=== PATIENT | male | born 1975 | race Caucasian/White ===

== ENCOUNTER 2023-07-18 19:42 | Inpatient (IN) | payer OTHER ==
[~2023-07-18] VITALS: Ht 180.3 cm; Wt 78.5 kg
[~2023-07-18 19:42] MED LIST: CHLO25B PO; MELATONIN5 M1 PO; VENL150ER PO
[2023-07-18] MEDS ORDERED: PRAZOSIN HCL1 M2 PO (19:54)
[2023-07-18] MEDS ORDERED: PAXIL2010 PO (19:54)
[2023-07-18 23:05] VITALS: BP 147/88
[2023-07-19] VITALS (16 sets, daily range): BP systolic 120–163; BP diastolic 72–99
--- NOTE | 2023-07-19 11:04 | NUR ---
PT TO OR AT THIS TIME
--- NOTE | 2023-07-19 11:28 | NUR ---
PT HAS 20G IV IN R AC THAT SHOWS NO SIGNS OF INFILTRATION. NO REDNESS, SWELLING, DRAINAGE AND DRESSING IS CDI.
--- NOTE | 2023-07-19 14:00 | NUR ---
POST OP: REPORT RECEIVED FROM LATOSHA YANEZ RN. UPON ASSESSMENT PT IS DROWSY, AWAKENS TO VOICE. SURGICAL SITES WNL, VSS. PT REPORTS PAIN TOLERABLE AT THIS TIME AND IS COMFORTABLE. PT AT BEDSIDE.
--- NOTE | 2023-07-19 18:00 | NUR ---
SUMMARY: NO ACUTE CHANGE SINCE POST OP. PT HAS BEEN SLEEPY, BUT WOKE UP TO AMBULATE, VOID AND EAT A LITTLE. PT REPORTS PAIN MANAGED WITH 1 OXY. DENIES N/V AND REPORTS FEELING BETTER. PT WEANED OFF 02. PLAN IS FOR DC TOMORROW.
--- NOTE | 2023-07-20 06:22 | NUR ---
SHIFT SUMMARY PT IS POD#1 FOR A LAPAROSCOPIC APPENDECTOMY. PT'S VITAL SIGNS HAVE BEEN STABLE THROUGHOUT THE SHIFT AND HIS PAIN HAS BEEN WELL CONTROLLED VIA EMAR. PT'S 3 LAP SITES ARE C/D/I AND HE WAS ABLE TO STAND AND VOID AGAIN EARLY THIS AM (700ML OUTPUT). NO OTHER ACUTE EVENTS OCCURRING OVERNIGHT. BED IS IN LOWEST POSITION, CALL LIGHT IS WITHIN REACH.
[2023-07-20 07:39] VITALS: BP 132/86
[2023-07-20 14:38] VITALS: BP 151/94
--- NOTE | 2023-07-20 19:02 | NUR ---
SHIFT SUMMARY POD1 LAP APPY, A/OX4, VSS, TOLERATING PO, AMBULATING INDEPENDENTLY, VOIDING, PAIN MANAGED PER EMAR, ENCOURAGING HIM TO AMBULATE. POSITIVE BLOOD CULTURES DRAWN FROM [facility] PRIOR TO TRANSFER TO HERE. NO ACUTE EVENTS THIS SHIFT, CALL LIGHT IN REACH.
[2023-07-20 19:04] VITALS: BP 153/91
[2023-07-21 03:54] VITALS: BP 146/91
[2023-07-21 04:59] LABS: Hematocrit 34.8 % (37.0-53.0); Hemoglobin 11.9 g/dL (13.5-17.5); Mean Corpuscular HGB 31.2 pg (26.0-34.0); Mean Corpuscular HGB Conc 34.2 g/dL (31.5-36.5); Mean Corpuscular Volume 91 fL (80-100); Mean Platelet Volume 9.9 fL (9.1-12.4); Platelet Count 168 K/mm3 (150-400); RDW Coefficient Variation 11.9 % (11.7-14.2); RDW Standard Deviation 39.8 fL (35.1-46.3); Red Blood Cell Count 3.82 M/mm3 (4.30-5.90); White Blood Cell Count 7.86 K/mm3 (4.00-11.30)
--- NOTE | 2023-07-21 05:29 | NUR ---
SUMMARY NO ACUTE CHANGES THROUGH THE NIGHT, VSS, 99.9 TEMP REPORTED THIS AM, PT EDUCATED ON COUGH & D.BREATHING, AMBULATION ENC, LAP SITES C/D/I, PAIN MANAGED W/PO MEDS, VOIDING WNL, IS AT THE BEDSIDE, CALL LIGHT IN REACH,
[2023-07-21 08:38] VITALS: BP 154/89
[2023-07-21 10:23] LABS: BAND PERCENT MAN 1 % (0-8); BASOPHILS PERCENT MAN 0 % (0-2); EOSINOPHILS PERCENT MAN 0 % (0-6); LYMPHOCYTES PERCENT MAN 9 % (21-46); MONOCYTES ABSOLUTE MAN 1.02 K/mm3 (0.16-1.47); MONOCYTES PERCENT MAN 13 % (4-13); NEUTROPHILS ABSOLUTE MAN 6.13 K/mm3 (1.96-9.15); SEG NEUTROPHILS PERCENT MAN 77 % (41-73); TOTAL CELLS COUNTED 100
--- NOTE | 2023-07-21 12:52 | NUR ---
DISCHARGE SUMMARY POD2 LAP APPY, A/OX4, VSS, TOLERATING PO, PAIN MANAGED PER EMAR, 3 LAP SITES C/D/I WITH STERI STRIPS IN PLACE, INDEPENDENT IN HIS ROOM ALL THIS SHIFT. DISCUSSED DISCHARGE INSTRUCTIONS WITH HIM AND HIS INCLUDING HOME CARE, MEDICATIONS (NEW SCRIPTS PROVIDED), AND FOLLOW UP APPOINTMENTS. NO QUESTIONS AT THIS TIME, IV ACCESS REMOVED. PT DECLINED WC ESCORT AND LEFT AMBULATORY TO PRIVATE AUTO TO GO HOME.
== END 2023-07-21 12:10 | disposition home or self-care (01) | DRG 398 ==
LOC: ER 19:42 → SURS 19:43
PROVIDERS: ADMIT Surgery
PROC: 0DTJ4ZZ Resection of Appendix, Percutaneous Endoscopic Approach (ICD-10-PCS; principal; 2023-07-19 11:30)
DX: K35.80 Unspecified acute appendicitis (principal); R78.81 Bacteremia; I10 Essential (primary) hypertension; F43.10 Post-traumatic stress disorder, unspecified
CPT/HCPCS: 36415; 85025; 88304; 96361; 96365; 96366; 96374; 96375; 96376; 99285; A9270; G0378; J0295; J1100; J1170; J1885; J2250; J2371; J2405; J2704; J3010; J7030; J7120